=== PATIENT | female | born 1980 | race Hispanic/Latino ===

== ENCOUNTER 2018-12-16 06:31 | Inpatient (IN) | payer BC ==
[~2018-12-16] VITALS: Ht 154.9 cm; Wt 99.8 kg
[2018-12-16] MEDS ORDERED: LACTATED RINGERS 1000ML 1,000 ML IV PRN (06:38)
[2018-12-16] MEDS ORDERED: OXYTOCIN 10 USP UNITS/ML 20 UNIT in LACTATED RINGERS 1000ML 1,000 ML IV SCH (06:45)
[2018-12-16] MEDS ORDERED: NALOXONE HCL 0.4 MG/1 ML ML IV PRN (06:45)
[2018-12-16] MEDS ORDERED: ROPIVACAINE 0.2% 100ML VIAL 100 ML EP SCH (06:45)
[2018-12-16] MEDS ORDERED: EPHEDRINE SULFATE 50 MG/ML AMPULE IVP PRN (06:45)
[2018-12-16] MEDS ORDERED: MEPERIDINE-PF 50 MG/ML SYG IVP ONE (06:45)
[2018-12-16] MEDS ORDERED: LACTATED RINGERS 500 ML 500 ML IV PRN (06:45)
[2018-12-16 07:39] LABS: APPEARANCE,URINE CLEAR (CLEAR); BILIRUBIN,URINE NEGATIVE (NEGATIVE); COLOR,URINE YELLOW (YELLOW); GLUCOSE, URINE (UA) NEGATIVE (NEGATIVE); HEMATOCRIT 38.1 % (36-48); KETONES,URINE >=80 mg/dL (NEGATIVE); LEUKOCYTE ESTERASE ,URINE NEGATIVE (NEGATIVE); MEAN CORPUSCULAR HEMOGLOBIN 26.8 pg (27.0-33.0); MEAN CORPUSCULAR VOLUME 83.5 fL (79-99); NITRATE,URINE NEGATIVE (NEGATIVE); NUCLEATED RED BLOOD CELLS 0.1 % (0.0-0.19); OCCULT BLOOD,URINE TRACE-INTACT (NEGATIVE); PLATELET COUNT (AUTO) 235 K/uL (130-400); PROTEIN,URINE NEGATIVE (NEGATIVE); RED BLOOD CELL COUNT(AUTO) 4.56 MIL/uL (4.00-5.50); RED CELL DISTRIBUTION WIDTH 14.2 % (11.0-15.5); UROBILINOGEN,URINE 0.2 mg/dL (0.2-1.0)
[2018-12-16 08:12] LABS: BACTERIA,URINE Rare /HPF (None Seen); MUCUS,URINE Many LPF (None Seen); RBC,URINE 0-1 /HPF (0-1); WBC,URINE None Seen /HPF (0-1)
[2018-12-16] MEDS ORDERED: OXYTOCIN-LR 20 UNITS/1000 ML 1,000 ML IV ONE (13:56)
[2018-12-16] MEDS ORDERED: MEPERIDINE-PF 50 MG/ML SYG ONE (16:25)
[2018-12-16] MEDS: PROMETHAZINE HCL 25 MG/ML 1ML AMPULE IM SCH (16:33)
[2018-12-16] MEDS ORDERED: LIDOCAINE HCL 1% 20 ML VIAL ONE (19:03)
[2018-12-16] MEDS ORDERED: BENZOCAINE/LANOLIN/ALOE VERA 60 ML AEROSOL TP PRN (19:15)
[2018-12-16] MEDS ORDERED: WITCH HAZEL 1 PAD TP PRN (19:15)
[2018-12-16] MEDS ORDERED: LANOLIN 30GM OINTMENT TP PRN (19:15)
[2018-12-16] MEDS: IBUPROFEN 800 MG TAB PO PRN (20:22)
--- NOTE | 2018-12-16 20:35 | NUR ---
Patient received from Labor and Delivery: Patient came in by wheelchair accompanied by Birdie Green RN. She has an IV of LR with 20 units Pitocin infusing well regulated at 125 ml/hour. She and oriented to the room, call light given. Plan of care discussed with patient they verbalizes understanding.
[2018-12-16 21:40] VITALS: BP 113/72
[2018-12-16] MEDS: DOCUSATE SODIUM 100 MG CAP PO SCH (22:34)
--- NOTE | 2018-12-16 22:40 | NUR ---
Lanolin cream for breast soreness, Dermoplast Bellflower and Sitz bath given with instruction.
[2018-12-16] MEDS ORDERED: PREN-66 PO (23:10)
[2018-12-16 23:23] VITALS: BP 116/66
[2018-12-16] MEDS ORDERED: ACETAMINOPHEN-CODEINE 300/30MG TAB PO PRN (23:30)
--- NOTE | 2018-12-16 23:30 | NUR ---
Communication: Dr. Castro called informed that patient wants stronger medication aside from Motrin,; received order to give Tylenol # 3 PRN for pain.
[2018-12-17] MEDS: ACETAMINOPHEN-CODEINE 300/30MG TAB PO PRN ×2 (00:05→11:44)
[2018-12-17 03:34] VITALS: BP 106/63
--- NOTE | 2018-12-17 05:15 | NUR ---
Exit Care given: Discharges instruction given printed in Amharic given to patient she varbalizes understanding.
[2018-12-17] MEDS: IBUPROFEN 800 MG TAB PO PRN ×2 (06:14→14:56)
[2018-12-17] MEDS: PROMETHAZINE HCL 25 MG/ML 1ML AMPULE IM SCH (06:45)
[2018-12-17 07:50] VITALS: BP 106/78
[2018-12-17 08:26] LABS: HEPATITIS Bs ANTIGEN SCREEN P Negative (Negative)
[2018-12-17] MEDS: DOCUSATE SODIUM 100 MG CAP PO SCH (08:58)
[2018-12-17 11:17] VITALS: BP 126/67
--- NOTE | 2018-12-17 11:48 | NUR ---
INSTRUCTIONS DISCHARGE INSTRUCTIONS PROVIDED TO PATIENT, ALONG WITH PRESCRIPTION; DEMONSTRATION, REINFORCEMENT ON USE, AND TEACH BACK DONE REGARDING SITZ BATH; PT VERBALIZED AND SIGNED UNDERSTANDING OF ALL DISCHARGE INSTRUCTIONS AND FOLLOW-UP CARE
--- NOTE | 2018-12-17 13:15 | NUR ---
REPORT RECEIVED FROM Yvonne QUIROGA RN AND PATIENT CARE TRANSFERED AT THIS TIME. PATIENT IS STABLE AND DENIES HAVING ANY PROBLEMS. PATIENT HAS BEEN DISCHARGED AND WAITING ON DISCHARGED.
[2018-12-17 15:41] VITALS: BP 104/68
--- NOTE | 2018-12-17 19:30 | NUR ---
PATIENT WAS TAKEN VIA W/C TO FAMILY [facility]LE C[facility]YING BABY IN ARMS. PATIENT STABLE AND DENIES PAIN.
== END 2018-12-17 19:30 | disposition home or self-care (01) | DRG 807 ==
LOC: LDH 06:31 → WSH 21:35
PROVIDERS: ADMIT Specialist; ATTEND Specialist
PROC: 10E0XZZ Delivery of Products of Conception, External Approach (ICD-10-PCS; principal; 2018-12-16)
PROC: 0HQ9XZZ Repair Perineum Skin, External Approach (ICD-10-PCS; 2018-12-16)
PROC: 10907ZC Drainage of Amniotic Fluid, Therapeutic from Products of Conception, Via Natural or Artificial Opening (ICD-10-PCS; 2018-12-16)
PROC: 3E033VJ Introduction of Other Hormone into Peripheral Vein, Percutaneous Approach (ICD-10-PCS; 2018-12-16)
DX: O69.1XX0 Labor and delivery complicated by cord around neck, with compression, not applicable or unspecified (principal); Z37.0 Single live birth; O70.0 First degree perineal laceration during delivery; Z3A.40 40 weeks gestation of pregnancy
CPT/HCPCS: 36415; 81001; 85027; 86592; 86850; 86900; 86901; 87340; A4351; A4606; G0378; J2175; J2550; J2590; J7120